=== PATIENT | male | born 1955 | race Caucasian/White ===

== ENCOUNTER 2017-11-02 13:51 | Inpatient (IN) | payer OTHER ==
[~2017-11-02] VITALS: Ht 185.4 cm; Wt 118.8 kg
--- NOTE | ~2017-11-02 | HC ---
[facility] [place] [address] CONSULTATION Name: DIONISIOLUIS Cooper Room #: 222-P ADM IN .R.#: [id number] Admission: 11/02/17 Attend Phys: Wing Montano MD Discharge: Date of : 51 Report #: [id number] THIS REPORT FOR: //name// CC: Wing Edwards DATE OF SERVICE: 11/03/2017 CHIEF COMPLAINT: Right knee prepatellar bursitis and cellulitis. HISTORY OF PRESENT ILLNESS: This 62-year-old gentleman developed some right knee pain and swelling after kneeling to clean out his car several days ago. He had no puncture, but developed pain, swelling and redness over the next 24-48 hours. Now, he has findings consistent with a prepatellar cellulitis and a small amount of fluid in the joint consistent with bursitis and a small focal abscess. He is only moderately uncomfortable and has a low-grade fever. OBJECTIVE: GENERAL: He is a healthy and alert and in no acute distress. He notes only moderate right knee discomfort. The right knee demonstrates some fluid in the prepatellar bursa consistent with bursitis and small abscess. There is mild surrounding redness consistent with cellulitis. The calf is supple and nontender. There is no evidence of DVT. There is no evidence of any distal problems and no lymphangitis proximally. I have discussed this with the patient and feel he would benefit from a limited debridement of the prepatellar bursa. He agreed. The debridement was accomplished after prepping the anterior aspect of the right knee in a sterile fashion. Local anesthesia was established with 2% lidocaine. A small skin incision was then made extending this into the prepatellar bursa. A small amount of blood-tinged serous fluid was returned. The bursa was probed with a small hemostat and a moderate amount of additional serous fluid was removed. The fluid was cultured and sent to the lab. The bursa seemed to be decompressed nicely. The wound was left open and no sutures were applied. A sterile dressing was placed, held with a gentle compressive Alhaji wrap. The patient tolerated this well and I expect this will assist in resolution of this local infectious process. <ELECTRONICALLY SIGNED> By: Young Norman MD 11/04/17 [id number] [id number] Young Norman MD /nt
--- NOTE | ~2017-11-02 | HC ---
[facility] [place] [address] CONSULTATION Name: LUIS NICHOLE Room #: 431-P [facility] IN M.R.#: [id number] Admission: 11/02/17 Attend Phys: Wing Montano MD Discharge: Date of : 51 Report #: [id number] THIS REPORT FOR: //name// CC: Wing Edwards DATE OF SERVICE: 11/02/2017 Infectious Diseases Consultation REASON FOR CONSULTATION: Right prepatellar bursitis. HISTORY OF PRESENT ILLNESS: The patient was a 62-year-old who presents with a 5-day history of increased pain, swelling and redness involving his right knee. He notes no specific injury, although he did work on a ladder the day before and worked on his car during that time period also. He awoke Monday morning with increased pain, erythema, and warmth to the anterior portion of his knee. He developed mild chills with low-grade fever. He reports swelling progressed over the patella with erythema extending down his leg with increased tightness. Pain was controlled with nonsteroidal anti-inflammatory medications. He had limited range of motion because of the swelling. He has a previous history of a small skin abscess to his lower abdomen in June. No known history of MRSA. Has pet cats. No recent travel. Essentially works indoors. However, remains fairly active and exercises weekly. REVIEW OF SYSTEMS: CONSTITUTIONAL: As above. SKIN: As above. LYMPH: Negative. HEMATOLOGIC: Negative. HEENT: Negative. PULMONARY: Negative. CARDIOVASCULAR: Negative. GASTROINTESTINAL: Negative. GENITOURINARY: Negative. JOINTS: As above. NEUROLOGIC: Negative. PSYCHIATRIC: Negative. ALLERGY: Negative. ALLERGIES: None. MEDICATIONS: As noted on his MAR, now on vancomycin. PAST MEDICAL HISTORY: Hyperlipidemia, obstructive sleep apnea, [facility] [address] [place] [address] CONSULTATION Name: DIONISIOLUIS Allison Room #: 431-P [facility] IN [facility]#: [id number] Admission: 11/02/17 Attend Phys: Wing Montano MD Discharge: Date of : 51 Report #: [id number] hemorrhoidectomy, gout. FAMILY HISTORY: Noncontributory. SOCIAL HISTORY: Nonsmoker, small amount, drinks alcohol on a weekly basis. PHYSICAL EXAMINATION: GENERAL: Afebrile and hemodynamically stable. Sitting up in his chair, in no acute distress. Appeared his stated age. HEENT: Unremarkable. NECK: Supple. No thyromegaly or mass. SKIN: Unremarkable other than what will be described on his right lower extremity examination. No lymphadenopathy. LUNGS: Clear. Chest wall unremarkable. HEART: Regular, without murmur, gallop or rub. ABDOMEN: Obese, soft, nontender, no hepatosplenomegaly or mass. EXTREMITIES: Right lower extremity had an erythematous fluctuant area over his right patella. There were surrounding erythema, which extended up his medial thigh and down his pretibial skin, 1+ edema in the leg below the knee. Pulses in the foot were normal. Popliteal pulse normal. Femoral pulses normal. NEUROLOGIC: lower extremities were normal. Sensation in the feet normal. Range of motion in the knee was limited by the swelling in the prepatellar space. This area was fluctuant, erythematous, and warm. IMAGING STUDIES: X-ray of the knee was unremarkable other than soft tissue swelling over the patella. Sedimentation rate 62. Hemoglobin 13.8, platelet count 169444, white count 11.3 with creatinine 1.0. IMPRESSION: A 62-year-old with prepatellar bursitis. Suspect bacterial infection with staphylococci, most likely. Could still be streptococcal in nature with a history of previous furuncle to his abdomen. We would treat for Methicillin-resistant Staphylococcus aureus pending further studies. We have orthopedic evaluate tomorrow if his knee does not improve for incision and drainage. We will place K-pad and elevate the foot and extremity overnight. <ELECTRONICALLY SIGNED> By: Yo Stauffer MD 11/03/17 [id number] [id number] Yo Stauffer MD /nt
[2017-11-02] MEDS ORDERED: ALLOPURINOL 10100 M2 PO (14:24)
[2017-11-02] MEDS ORDERED: LIPITOR 20 MG T20 M1 PO (14:24)
[2017-11-02] MEDS ORDERED: DEXILANT60 MG PO (14:25)
[2017-11-02] MEDS ORDERED: SUDAFED PE10 M2 PO (14:26)
[2017-11-02 14:35] VITALS: BP 146/99
[2017-11-02 16:04] LABS: HEMATOCRIT 40.2 % (42.0-52.0); HEMOGLOBIN 13.8 gm/dL (14.0-18.0); MCH 31.3 pg (26.0-34.0); MCHC 34.3 g/dL (28.0-37.0); MCV 91.1 fL (80.0-100.0); RBC 4.41 mil/uL (4.50-6.00); RDW 14.4 % (10.5-14.5); WBC 11.3 thou/uL (4.0-11.0)
[2017-11-02 16:13] LABS: CALCIUM 9.1 mg/dL (8.5-10.1); POTASSIUM 3.4 mmol/L (3.5-5.1)
[2017-11-03 04:47] VITALS: BP 130/80
[2017-11-03 07:17] VITALS: BP 132/85
[2017-11-03 14:33] VITALS: BP 132/85
[2017-11-03 16:30] VITALS: BP 147/92
[2017-11-03 20:11] VITALS: BP 136/85
[2017-11-04 07:26] LABS: HEMATOCRIT 39.9 % (42.0-52.0); HEMOGLOBIN 13.6 gm/dL (14.0-18.0); MCH 31.1 pg (26.0-34.0); MCV 91.4 fL (80.0-100.0); RBC 4.37 mil/uL (4.50-6.00)
[2017-11-04 07:30] VITALS: BP 149/91
[2017-11-04 07:33] LABS: CALCIUM 9.5 mg/dL (8.5-10.1); CREATININE 1.1 mg/dL (0.7-1.3); POTASSIUM 4.1 mmol/L (3.5-5.1)
[2017-11-04 19:43] VITALS: BP 144/92
== END 2017-11-04 19:47 | disposition home or self-care (01) | DRG 488 ==
LOC: 4E 13:51 → ENTRNSPT 11-03 14:33 → EDTRNSPTSTS 11-03 14:34 → SICU 11-03 15:06
PROVIDERS: Hospitalist
PROC: 5A09357 Assistance with Respiratory Ventilation, Less than 24 Consecutive Hours, Continuous Positive Airway Pressure (ICD-10-PCS; principal; 2017-11-02)
PROC: 0S9C0ZZ Drainage of Right Knee Joint, Open Approach (ICD-10-PCS; 2017-11-02)
PROC: 5A09357 Assistance with Respiratory Ventilation, Less than 24 Consecutive Hours, Continuous Positive Airway Pressure (ICD-10-PCS; 2017-11-03)
DX: M71.161 Other infective bursitis, right knee (principal); L03.115 Cellulitis of right lower limb; E78.5 Hyperlipidemia, unspecified; G47.33 Obstructive sleep apnea (adult) (pediatric); M10.9 Gout, unspecified; Z79.899 Other long term (current) drug therapy; E78.00 Pure hypercholesterolemia, unspecified
CPT/HCPCS: 10783; 15002

== ENCOUNTER → 2017-11-08 | Outpatient (CLI) | payer OTHER ==
[~2017-11-08] MED LIST: ALLOPURINOL 10100 M2 PO; DEXILANT60 MG PO; LIPITOR 20 MG T20 M1 PO; SUDAFED PE10 M2 PO
[2017-11-08 11:18] VITALS: BP 135/88
== END ==
LOC: OPONC 01:09 → EDSTATUS 13:57 → OPONC 14:09
DX: L08.9 Local infection of the skin and subcutaneous tissue, unspecified (principal)
CPT/HCPCS: 95000

== ENCOUNTER → 2017-11-09 | Outpatient (CLI) | payer OTHER ==
[2017-11-09 11:00] VITALS: BP 130/78
== END ==
LOC: OPONC 02:15
DX: L08.9 Local infection of the skin and subcutaneous tissue, unspecified (principal)
CPT/HCPCS: 95000

== ENCOUNTER → 2017-11-10 | Outpatient (CLI) | payer OTHER ==
[2017-11-10 10:30] VITALS: BP 132/82
[2017-11-10 11:42] LABS: HEMATOCRIT 40.1 % (42.0-52.0); HEMOGLOBIN 13.8 gm/dL (14.0-18.0); MCH 31.2 pg (26.0-34.0); MCHC 34.4 g/dL (28.0-37.0); MCV 90.7 fL (80.0-100.0); RBC 4.43 mil/uL (4.50-6.00); RDW 13.9 % (10.5-14.5); WBC 7.6 thou/uL (4.0-11.0)
[2017-11-10 12:00] LABS: ALBUMIN 3.5 g/dL (3.4-5.0); CALCIUM 8.9 mg/dL (8.5-10.1); POTASSIUM 3.9 mmol/L (3.5-5.1); TOTAL BILIRUBIN 0.2 mg/dL (<0.1-1.0); TOTAL PROTEIN 7.9 g/dL (6.4-8.2)
== END ==
LOC: OPONC 00:16
PROVIDERS: Specialist
DX: L08.9 Local infection of the skin and subcutaneous tissue, unspecified (principal)
CPT/HCPCS: 95000

== ENCOUNTER → 2017-11-11 | Outpatient (CLI) | payer OTHER | LOC: OPONC 05:33 | DX: L08.89 Other specified local infections of the skin and subcutaneous tissue (principal) | CPT/HCPCS: 95000 ==

== ENCOUNTER → 2017-11-12 | Outpatient (CLI) | payer OTHER | LOC: OPONC 10:59 | DX: L08.89 Other specified local infections of the skin and subcutaneous tissue (principal); L03.115 Cellulitis of right lower limb; M70.51 Other bursitis of knee, right knee | CPT/HCPCS: 95000 ==

== ENCOUNTER → 2017-11-13 | Outpatient (CLI) | payer OTHER ==
[2017-11-13 12:00] VITALS: BP 137/83
== END ==
LOC: OPONC 08:07
DX: L08.89 Other specified local infections of the skin and subcutaneous tissue (principal)
CPT/HCPCS: 95000

== ENCOUNTER → 2017-11-14 | Outpatient (CLI) | payer OTHER | LOC: OPONC 07:33 | DX: L08.9 Local infection of the skin and subcutaneous tissue, unspecified (principal) | CPT/HCPCS: 95000 ==

== ENCOUNTER → 2017-11-15 | Outpatient (CLI) | payer OTHER ==
[2017-11-15 12:10] VITALS: BP 133/81
== END ==
LOC: OPONC 02:55
DX: L08.9 Local infection of the skin and subcutaneous tissue, unspecified (principal)
CPT/HCPCS: 95000

== ENCOUNTER → 2017-11-16 | Outpatient (CLI) | payer OTHER ==
[2017-11-16 11:20] VITALS: BP 137/76
== END ==
LOC: OPONC 08:24
DX: L08.9 Local infection of the skin and subcutaneous tissue, unspecified (principal)
CPT/HCPCS: 95000

== ENCOUNTER → 2017-11-17 | Outpatient (CLI) | payer OTHER ==
[2017-11-17 14:02] VITALS: BP 129/82
== END ==
LOC: OPONC 00:35
DX: L08.9 Local infection of the skin and subcutaneous tissue, unspecified (principal)
CPT/HCPCS: 95000

== ENCOUNTER → 2017-11-18 | Outpatient (CLI) | payer OTHER | LOC: OPONC 02:45 | DX: L08.9 Local infection of the skin and subcutaneous tissue, unspecified (principal) | CPT/HCPCS: 95000 ==

== ENCOUNTER → 2017-11-19 | Outpatient (CLI) | payer OTHER | LOC: OPONC 07:37 | DX: L08.9 Local infection of the skin and subcutaneous tissue, unspecified (principal) | CPT/HCPCS: 95000 ==

== ENCOUNTER → 2017-11-20 | Outpatient (CLI) | payer OTHER ==
[2017-11-20 11:07] LABS: HEMATOCRIT 41.2 % (42.0-52.0); HEMOGLOBIN 13.9 gm/dL (14.0-18.0); MCH 30.7 pg (26.0-34.0); MCHC 33.8 g/dL (28.0-37.0); MCV 90.6 fL (80.0-100.0); RBC 4.55 mil/uL (4.50-6.00); RDW 13.7 % (10.5-14.5); WBC 5.7 thou/uL (4.0-11.0)
[2017-11-20 11:23] LABS: CALCIUM 9.5 mg/dL (8.5-10.1); CREATININE 1.1 mg/dL (0.7-1.3); POTASSIUM 4.1 mmol/L (3.5-5.1)
[2017-11-20 11:30] LABS: ALBUMIN 3.6 g/dL (3.4-5.0); TOTAL BILIRUBIN 0.3 mg/dL (<0.1-1.0); TOTAL PROTEIN 7.7 g/dL (6.4-8.2)
[2017-11-20 13:09] VITALS: BP 141/70
== END ==
LOC: OPONC 01:50
PROVIDERS: Specialist
DX: L08.9 Local infection of the skin and subcutaneous tissue, unspecified (principal)
CPT/HCPCS: 95000

== ENCOUNTER → 2018-09-10 | Outpatient (CLI) | payer OTHER | LOC: MRI 08-10 15:40 | DX: M47.812 Spondylosis without myelopathy or radiculopathy, cervical region (principal); M50.83 Other cervical disc disorders, cervicothoracic region; M48.02 Spinal stenosis, cervical region; M25.78 Osteophyte, vertebrae ==